=== PATIENT | male | born 1995 | race Caucasian/White ===

== ENCOUNTER 2019-05-08 16:55 | Emergency (ER) | payer OTHER ==
[2019-05-08 17:01] VITALS: BP 132/90; PULSE 86; TEMP 98; BMI 22.4
--- NOTE | 2019-05-08 18:26 | PDOC ---
History of Present Illness - General Chief Complaint: Substance Abuse Stated Complaint: WITHDRAWAL Time Seen by Provider: 05/08/19 17:41 History Source: Patient Exam Limitations: No Limitations - History of Present Illness Initial Comments: 05/08/19 18:18 Patient is a 23 year old male with h/o left elbow fx x 2, here with request for detox from Xanax. Patient states had been using 2mg Xanax per day x 2 months recreationly, buying from the street from a dealer. last used 2mg Xanax late last night. He is now feeling anxious and nauseous. was not able to sleep last night. (+) sweating intermittently, No seizure activity. Report a GARCIA frontal 12/17. PSOCHX: (+) MJ, (+) xananx, ALL: NKDA GENERAL/CONSTITUTIONAL: No fever or chills. No weakness. No weight change. HEAD, EYES, EARS, NOSE AND THROAT: No change in vision. No ear pain or discharge. No sore throat. CARDIOVASCULAR: No chest pain or shortness of breath. RESPIRATORY: No cough, wheezing, or hemoptysis. GASTROINTESTINAL: No nausea, vomiting, diarrhea or constipation. No rectal bleeding. GENITOURINARY: No dysuria, frequency, or change in urination. MUSCULOSKELETAL: No joint or muscle swelling or pain. No neck or back pain. SKIN AND BREASTS: No rash or easy bruising. NEUROLOGIC: (+) headache, vertigo, loss of consciousness, or loss of sensation. PSYCHIATRIC: No depression or anxiety. ENDOCRINE: No increased thirst. No abnormal weight change. HEMATOLOGIC/LYMPHATIC: No anemia, easy bleeding, or history of blood clots. ALLERGIC/IMMUNOLOGIC: No hives or skin allergy. No latex allergy. GENERAL: The patient is awake, alert, and fully oriented, in mild distress. HEAD: Normal with no signs of trauma. EYES: Pupils equal, round and reactive to light, extraocular movements intact, sclera anicteric, conjunctiva clear. ENT: Ears normal, nares patent, oropharynx clear without exudates. Moist mucous membranes. NECK: Normal range of motion, supple without lymphadenopathy, JVD, or masses. LUNGS: Breath sounds equal, clear to auscultation bilaterally. No wheezes, and no crackles. HEART: Regular rate and rhythm, normal S1 and S2 without murmur, rub. ABDOMEN: Soft, nontender, normoactive bowel sounds. No guarding, no rebound. No masses. EXTREMITIES: Normal range of motion, no edema. No clubbing or cyanosis. No cords, erythema, or tenderness. NEUROLOGICAL: Cranial nerves II through XII grossly intact. Normal speech, normal gait. PSYCH: Normal mood, normal affect. SKIN: Warm, Dry, normal turgor, no sweating noted, no rashes or lesions noted. Past History - Past Medical History Allergies/Adverse Reactions: Allergies Allergy/AdvReac Type Severity Reaction Status Date / Time No Known Allergies Allergy Verified 05/08/19 17:01 COPD: No - Psycho Social/Smoking Cessation Hx Smoking History: Never smoked *Physical Exam - Vital Signs Last Vital Signs Temp Pulse Resp BP Pulse Ox 98 F 86 18 132/90 99 05/08/19 16:58 05/08/19 16:58 05/08/19 16:58 05/08/19 16:58 05/08/19 16:58 Medical Decision Making - Medical Decision Making 05/08/19 18:18 Patient is a 23 year old male with h/o left elbow fx x 2, here with request for detox from Xanax. Patient states had been using 2mg Xanax per day x 2 months recreationaly, buying from the street from a dealer. last used 2mg Xanax late last night. He is now feeling anxious and nauseous. was not able to sleep last night. (+) sweating intermittently, No seizure activity. Report a GARCIA frontal 5/10. Patient with mild withdrawal symptoms. case d/w [facility] Dr. Galvan, who states patient could come for evaluation. patient sent with security. Since is medically cleared for detox. Discharge - Discharge Information Problems reviewed: Yes Clinical Impression/Diagnosis: Desire for detoxification Condition: Fair Disposition: HOME - Follow up/Referral - Patient Discharge Instructions Additional Instructions: Your Discharge Instructions: You must call primary care physician within 24 hours to arrange follow-up. Return to the Emergency Department with any new, persistent or worsening symptoms, for fever, chills, SOB, dizziness or any other concerning changes that may occur. - Post Discharge Activity
== END 2019-05-08 18:43 | disposition home or self-care (01) ==
LOC: JER 16:55
DX: F13.230 Sedative, hypnotic or anxiolytic dependence with withdrawal, uncomplicated (principal); F12.10 Cannabis abuse, uncomplicated
CPT/HCPCS: 99282-25

== ENCOUNTER 2019-05-08 18:54 | Inpatient (IN) | payer OTHER ==
[2019-05-08 19:48] VITALS: BMI 22.5
--- NOTE | 2019-05-08 20:40 | HP ---
CIWA Score Nausea/Vomitin Muscle Tremors: 3 Anxiety: 4-Mod. Anxious/Guarded Agitation: 3 Paroxysmal Sweats: 3 Orientation: 0-Oriented Tacttile Disturbances: 0-None Auditory Disturbances: 0-None Visual Disturbances: 0-None Headache: 2-Mild CIWA-Ar Total Score: 17 - Admission Criteria OASAS Guidelines: Admission for Medically Managed Detox: Requires at least one of the followin. CIWA greater than 12 2. Seizures within the past 24 hours 3. Delirium tremens within the past 24 hours 4. Hallucinations within the past 24 hours 5. Acute intervention needed for co occurring medical disorder 6. Acute intervention needed for co occurring psychiatric disorder 7. Severe withdrawal that cannot be handled at a lower level of care (continued vomiting, continued diarrhea, abnormal vital signs) requiring intravenous medication and/or fluids 8. Admission [facility] Chief Complaint: Benzodiazepine withdrawal symptoms Allergies/Adverse Reactions: Allergies Allergy/AdvReac Type Severity Reaction Status Date / Time No Known Allergies Allergy Verified 05/08/19 17:01 History of Present Illness: 23 years old male is seeking admission to detox from Xanax. Patient reports that first used Xanax in the summer of 2013 and has used it intermittently during summer when his friend who provides the drug comes back on vacation. However, a friend linked him to a seller and he has constantly taken the drug for about 3 months now. This is his first admission to detox or a treatment facility and first admission to [facility]. He denies any medical history, suicide attempt and suicidal ideation at this time. - Ebola screening Have you traveled outside of the country in the last 21 days: No (N) Have you had contact with anyone from an Ebola affected area: No Do you have a fever: No - Review of Systems Constitutional: Loss of Appetite, Night Sweats, Changes in sleep EENT: reports: No Symptoms Reported Respiratory: reports: No Symptoms reported Cardiac: reports: No Symptoms Reported GI: reports: Nausea, Poor Appetite, Poor Fluid Intake : reports: No Symptoms Reported Musculoskeletal: reports: No Symptoms Reported Integumentary: reports: Dryness, Flushing Neuro: reports: Headache, Tremors Endocrine: reports: No Symptoms Reported Hematology: reports: No Symptoms Reported Psychiatric: reports: Judgement Intact, Mood/Affect Appropiate, Orientated x3 Other Systems: Reviewed and Negative Patient History - Patient Medical History Hx Anemia: No Hx Asthma: No Hx Chronic Obstructive Pulmonary Disease (COPD): No Hx Cancer: No Hx Cardiac Disorders: No Hx Congestive Heart Failure: No Hx Hypertension: No Hx Hypercholesterolemia: No Hx Pacemaker: No HX Cerebrovascular Accident: No Hx Seizures: No Hx Diabetes: No Hx Gastrointestinal Disorders: No Hx Liver Disease: No Hx Genitourinary Disorders: No Hx Sexually Transmitted Disorders: No Hx Renal Disease (ESRD): No Hx Thyroid Disease: No Hx Human Immunodeficiency Virus (HIV): No (Never tested) Hx Hepatitis C: No Hx Depression: No Hx Suicide Attempt: No Hx Bipolar Disorder: No Hx Schizophrenia: No - Patient Surgical History Past Surgical History: No - PPD History Previous Implant?: No (Patient does not remember if there was a previous implant ) Implanted On Prior R Admission?: No PPD to be Administered?: Yes - Reproductive History Patient is a Female of Child Bearing Age (11 -55 yrs old): No (male) - Smoking Cessation Smoking history: Never smoked Have you smoked in the past 12 months: No Hx Chewing Tobacco Use: No Initiated information on smoking cessation: No - Substance & Tx. History Hx Alcohol Use: No Hx Substance Use: Yes Substance Use Type: Tranquilizers Hx Substance Use Treatment: No - Substances abused Alprazolam (Xanax) Substance route: Oral Frequency: Daily Amount used: 2 MG Age of first use: 23 Date of last use: 05/08/19 Admission Physical Exam [facility] - Vital Signs Vital Signs: Vital Signs - 24 hr 05/08/19 19:43 Temperature 99.9 F H Pulse Rate 78 Respiratory 20 Rate Blood Pressure 147/91 - Physical General Appearance: Yes: Moderate Distress, Tremorous, Irritable, Sweating HEENTM: Yes: Within Normal Limits, Hearing grossly Normal Respiratory: Yes: Lungs Clear, Normal Breath Sounds, No Respiratory Distress Neck: Yes: Supple Breast: Yes: Breast Exam Deferred Cardiology: Yes: Tachycardia Abdominal: Yes: Normal Bowel Sounds, Soft Genitourinary: Yes: Within Normal Limits Back: Yes: Normal Inspection Musculoskeletal: Yes: Within Normal Limits Extremities: Yes: Tremors Neurological: Yes: Alert, Normal Mood/Affect Integumentary: Yes: Warm Lymphatic: Yes: Within Normal Limits - Diagnostic (1) Sedative, hypnotic or anxiolytic dependence with withdrawal, uncomplicated Current Visit: Yes Status: Acute Cleared for Admission [facility] - Detox or Rehab [facility] Level of Care: Medically Managed Detox Regimen/Protocol: Valium Breathalyzer - Breathalyzer Breathalyzer: 0 Urine Drug Screen - Test Device Lot number: [id number] Expiration date: 01/06/21 - Control Is test valid?: Yes - Results Drug screen NEGATIVE: No Urine drug screen results: THC-Marijuana, BZO-Benzodiazepines Inpatient Rehab Admission - Rehab Decision to Admit Inpatient rehab admission?: No
[2019-05-08] MEDS ORDERED: MAG HYDROX/AL HYDROX/SIMETH 30 ML UNIT-DOSE CUP PO PRN (20:58)
[2019-05-08] MEDS ORDERED: BISMUTH SUBSALICYLATE 524 MG/30 ML UD PO PRN (20:58)
[2019-05-08] MEDS ORDERED: MAGNESIUM CITRATE 300 ML BOTTLE PO PRN (20:58)
[2019-05-08] MEDS ORDERED: MAGNESIUM HYDROX 2400MG/30ML ORAL SUSPENSION 30 ML CUP PO PRN (20:58)
[2019-05-08] MEDS ORDERED: METHOCARBAMOL 500 MG TABLET PO PRN (20:58)
[2019-05-08] MEDS ORDERED: MENTHOL/PHENOL 1 EACH UD MM PRN (20:58)
[2019-05-08] MEDS ORDERED: ACETAMINOPHEN 325 MG TABLET (FP) PO PRN (20:58)
[2019-05-08] MEDS ORDERED: chlordiazePOXIDE HCL 10 MG CAPSULE PO PRN (20:58)
[2019-05-08] MEDS ORDERED: chlordiazePOXIDE HCL 25 MG CAPSULE PO SCH (21:00)
[2019-05-08] MEDS: THIAMINE HCL 100 MG TABLET (FP) PO SCH (22:24)
[2019-05-08] MEDS: diazePAM 5 MG TABLET PO SCH (22:24)
[2019-05-08] MEDS: MELATONIN 5 MG TABLETS PO PRN (22:25)
[2019-05-08] MEDS: ACETAMINOPHEN 325 MG TABLET (FP) PO PRN (22:28)
[2019-05-09] MEDS: diazePAM 5 MG TABLET PO SCH ×3 (05:30→22:53)
[2019-05-09] MEDS: ACETAMINOPHEN 325 MG TABLET (FP) PO PRN (07:30)
[2019-05-09] MEDS: diazePAM 5 MG TABLET PO PRN ×2 (09:47→18:02)
[2019-05-09] MEDS: PRENATAL VITAMINS W/ FOLIC ACID TABLET (FP) PO SCH (09:47)
[2019-05-09] MEDS: IBUPROFEN 400 MG TABLET (FP) PO PRN ×2 (09:47→18:03)
[2019-05-09 11:49] LABS: HEMATOCRIT 45.9 % (35.4-49); HEMOGLOBIN 15.3 GM/dL (11.7-16.9); MCH 29.5 pg (25.7-33.7); MCHC 33.3 g/dl (32.0-35.9); MEAN CELL VOLUME 88.7 fl (80-96); PLATELET COUNT 229 K/MM3 (134-434); RBC 5.17 M/mm3 (4.00-5.60); RDW 13.5 % (11.9-15.9); WHITE BLOOD COUNT 9.3 K/mm3 (4.0-10.0)
[2019-05-09 12:20] LABS: ALBUMIN 4.9 g/dl (3.4-5.0); BILIRUBIN,TOTAL 0.9 mg/dL (0.2-1); BLOOD UREA NITROGEN 9.2 mg/dL (7-18); TOT PROT 8.2 g/dl (6.4-8.2)
--- NOTE | 2019-05-09 12:56 | PN ---
S CIWA - CIWA Score Nausea/Vomitin-Mild Nausea/No Vomiting Muscle Tremors: 3 Anxiety: 3 Agitation: 2 Paroxysmal Sweats: 1-Minimal Palms Moist Orientation: 0-Oriented Tacttile Disturbances: 1-Very Mild Itch/Numbness Auditory Disturbances: 1-Very Mild Visual Disturbances: 0-None Headache: 2-Mild CIWA-Ar Total Score: 14 S Progress Note (SOAP) Subjective: doing well with valium detox regimen resting on bed comfortably feeling tired prefers to sleep today Objective: 05/09/19 12:57 Vital Signs Temperature 97.9 F 05/09/19 09:10 Pulse Rate 79 05/09/19 09:10 Respiratory Rate 18 05/09/19 09:10 Blood Pressure 122/74 05/09/19 09:10 O2 Sat by Pulse Oximetry (%) Laboratory Last Values WBC 9.3 K/mm3 (4.0-10.0) 05/09/19 08:50 RBC 5.17 M/mm3 (4.00-5.60) 05/09/19 08:50 Hgb 15.3 GM/dL (11.7-16.9) 05/09/19 08:50 Hct 45.9 % (35.4-49) 05/09/19 08:50 MCV 88.7 fl (80-96) 05/09/19 08:50 MCH 29.5 pg (25.7-33.7) 05/09/19 08:50 MCHC 33.3 g/dl (32.0-35.9) 05/09/19 08:50 RDW 13.5 % (11.9-15.9) 05/09/19 08:50 Plt Count 229 K/MM3 (134-434) 05/09/19 08:50 MPV 11.0 fl (7.5-11.1) 05/09/19 08:50 Sodium 139 mmol/L (136-145) 05/09/19 08:50 Potassium 4.0 mmol/L (3.5-5.1) 05/09/19 08:50 Chloride 100 mmol/L (98-107) 05/09/19 08:50 Carbon Dioxide 30 mmol/L (21-32) 05/09/19 08:50 Anion Gap 9 MMOL/L (8-16) 05/09/19 08:50 BUN 9.2 mg/dL (7-18) 05/09/19 08:50 Creatinine 1.0 mg/dL (0.55-1.3) 05/09/19 08:50 Est GFR (CKD-EPI)AfAm 122.41 05/09/19 08:50 Est GFR (CKD-EPI)NonAf 105.62 05/09/19 08:50 Random Glucose 92 mg/dL (74-106) 05/09/19 08:50 Calcium 10.0 mg/dL (8.5-10.1) 05/09/19 08:50 Total Bilirubin 0.9 mg/dL (0.2-1) 05/09/19 08:50 AST 24 U/L (15-37) 05/09/19 08:50 ALT 122 U/L (13-61) H 05/09/19 08:50 Alkaline Phosphatase 72 U/L (45-117) 05/09/19 08:50 Total Protein 8.2 g/dl (6.4-8.2) 05/09/19 08:50 Albumin 4.9 g/dl (3.4-5.0) 05/09/19 08:50 RPR Titer Nonreactive (NONREACTIVE) 05/09/19 08:50 lab noted Assessment: 05/09/19 12:58 benzo withdrawal sx Plan: continue valium detox regimen
--- NOTE | 2019-05-09 13:25 | EKG ---
Test Reason : Blood Pressure : / mmHG Vent. Rate : 071 BPM Atrial Rate : 071 BPM P-R Int : 140 ms QRS Dur : 084 ms QT Int : 388 ms P-R-T Axes : 036 081 047 degrees QTc Int : 421 ms NORMAL SINUS RHYTHM WITH SINUS ARRHYTHMIA NORMAL ECG NO PREVIOUS ECGS AVAILABLE Confirmed by YAHAIRA ALFREDO MD ([id number]) on 05/09/2019 1:25:01 PM Referred By: Confirmed By:YAHAIRA ALFREDO MD
[2019-05-09] MEDS: THIAMINE HCL 100 MG TABLET (FP) PO SCH (22:53)
[2019-05-10] MEDS ORDERED: chlordiazePOXIDE 5 MG CAPSULE PO SCH (05:00)
[2019-05-10] MEDS: diazePAM 5 MG TABLET PO SCH ×2 (05:56→18:08)
[2019-05-10] MEDS: ACETAMINOPHEN 325 MG TABLET (FP) PO PRN (10:35)
[2019-05-10] MEDS: PRENATAL VITAMINS W/ FOLIC ACID TABLET (FP) PO SCH (10:35)
--- NOTE | 2019-05-10 16:56 | PN ---
S CIWA - CIWA Score Nausea/Vomitin (Poor Appetite.) Muscle Tremors: None Anxiety: 4-Mod. Anxious/Guarded Agitation: 3 Paroxysmal Sweats: No Perspiration Orientation: 0-Oriented Tacttile Disturbances: 0-None Auditory Disturbances: 0-None Visual Disturbances: 0-None Headache: 0-None Present CIWA-Ar Total Score: 9 BHS Progress Note (SOAP) Subjective: Interrupted Sleep, Poor Appetite, Anxious. Objective: PATIENT A & O X 3, OBSERVED AMBULATING ON DETOX UNIT UNASSISTED. IN NO ACUTE DISTRESS. 05/10/19 16:54 Vital Signs Temperature 98.1 F 05/10/19 13:32 Pulse Rate 74 05/10/19 13:32 Respiratory Rate 18 05/10/19 13:32 Blood Pressure 141/93 05/10/19 13:32 O2 Sat by Pulse Oximetry (%) Laboratory Tests 05/09/19 05/09/19 05/09/19 08:50 08:50 08:50 WBC 9.3 RBC 5.17 Hgb 15.3 Hct 45.9 MCV 88.7 MCH 29.5 MCHC 33.3 RDW 13.5 Plt Count 229 MPV 11.0 Sodium 139 Potassium 4.0 Chloride 100 Carbon Dioxide 30 Anion Gap 9 BUN 9.2 Creatinine 1.0 Est GFR (CKD-EPI)AfAm 122.41 Est GFR (CKD-EPI)NonAf 105.62 Random Glucose 92 Calcium 10.0 Total Bilirubin 0.9 AST 24 ALT 122 H Alkaline Phosphatase 72 Total Protein 8.2 Albumin 4.9 RPR Titer Nonreactive LABS NOTED. Assessment: 05/10/19 16:55 WITHDRAWAL SYMPTOMS. ELEVATED ALT LEVEL. Plan: CONTINUE DETOX. PRN MELATONIN PO FOR INSOMNIA. ENSURE PO FOR CALORIC SUPPLEMENTATION. PATIENT SCHEDULED FOR D/C FROM DETOX UNIT TOMORROW.
[2019-05-10] MEDS: THIAMINE HCL 100 MG TABLET (FP) PO SCH (22:07)
[2019-05-10] MEDS: MELATONIN 5 MG TABLETS PO PRN (22:07)
[2019-05-11] MEDS ORDERED: chlordiazePOXIDE HCL 10 MG CAPSULE PO PRN
[2019-05-11] MEDS ORDERED: chlordiazePOXIDE HCL 10 MG CAPSULE PO SCH (05:00)
[2019-05-11] MEDS ORDERED: diazePAM 5 MG TABLET PO ONE (06:00)
[2019-05-11] MEDS: ACETAMINOPHEN 325 MG TABLET (FP) PO PRN (08:20)
[2019-05-11] MEDS: PRENATAL VITAMINS W/ FOLIC ACID TABLET (FP) PO SCH (10:24)
[2019-05-11] MEDS: hydrOXYzine PAMOATE 25 MG CAPSULE (FP) PO PRN ×2 (14:04→22:11)
--- NOTE | 2019-05-11 15:45 | PN ---
S CIWA - CIWA Score Nausea/Vomitin-No Nausea/No Vomiting Muscle Tremors: None Anxiety: 3 Agitation: 3 Paroxysmal Sweats: 3 Orientation: 0-Oriented Tacttile Disturbances: 0-None Auditory Disturbances: 0-None Visual Disturbances: 0-None Headache: 0-None Present CIWA-Ar Total Score: 9 BHS Progress Note (SOAP) Subjective: Sweating, Anxious. Objective: PATIENT A & O X 3, OBSERVED AMBULATING ON DETOX UNIT UNASSISTED. IN NO ACUTE DISTRESS. 05/11/19 15:42 Vital Signs Temperature 97.9 F 05/11/19 13:04 Pulse Rate 101 H 05/11/19 13:04 Respiratory Rate 18 05/11/19 13:04 Blood Pressure 144/91 05/11/19 13:04 O2 Sat by Pulse Oximetry (%) Laboratory Tests 05/09/19 05/09/19 05/09/19 08:50 08:50 08:50 WBC 9.3 RBC 5.17 Hgb 15.3 Hct 45.9 MCV 88.7 MCH 29.5 MCHC 33.3 RDW 13.5 Plt Count 229 MPV 11.0 Sodium 139 Potassium 4.0 Chloride 100 Carbon Dioxide 30 Anion Gap 9 BUN 9.2 Creatinine 1.0 Est GFR (CKD-EPI)AfAm 122.41 Est GFR (CKD-EPI)NonAf 105.62 Random Glucose 92 Calcium 10.0 Total Bilirubin 0.9 AST 24 ALT 122 H Alkaline Phosphatase 72 Total Protein 8.2 Albumin 4.9 RPR Titer Nonreactive LABS NOTED. Assessment: 05/11/19 15:42 WITHDRAWAL SYMPTOMS. ELEVATED BLOOD PRESSURE READING IN OFFICE WITHOUT DIAGNOSIS OF HYPERTENSION. Plan: CONTINUE DETOX. PATIENT'S BP TODAY NOTED TO BE INTERMITTENTLY ELEVATED. PATIENT DENIES KNOWN HISTORY OF HTN. PATIENT DENIES CHEST PAIN. PATIENT PERMITTED TO REMAIN ON DETOX UNIT UNTIL TOMORROW MA TO CONTINUE TO MONITOR BP TO ENSURE THAT IT STABILIZES PRIOR TO D/C.
[2019-05-11 21:49] VITALS: PULSE 81
[2019-05-11] MEDS: THIAMINE HCL 100 MG TABLET (FP) PO SCH (22:11)
[2019-05-11] MEDS: MELATONIN 5 MG TABLETS PO PRN (22:12)
[2019-05-12] MEDS ORDERED: chlordiazePOXIDE HCL 10 MG CAPSULE PO ONE (05:00)
[2019-05-12 06:40] VITALS: BP 127/78; TEMP 97
--- NOTE | 2019-05-12 09:39 | DS ---
[facility] Detox Discharge Summary Admission Date: 05/08/19 Discharge Date: 05/12/19 - History Present History: Sedative Dependence Additional Comments: Patient medically stable, no SI/HI, successfully completed benzo detox. Patient to follow up with attached referrals to outpatient programs. Follow up with PCP at [facility] within a week. If worsening symptoms are present seek medical attention. Pertinent Past History: Vital Signs Temperature 97.0 F L 05/12/19 06:39 Pulse Rate 81 05/12/19 06:39 Respiratory Rate 18 05/12/19 06:39 Blood Pressure 127/78 05/12/19 06:39 O2 Sat by Pulse Oximetry (%) Laboratory Last Values WBC 9.3 K/mm3 (4.0-10.0) 05/09/19 08:50 RBC 5.17 M/mm3 (4.00-5.60) 05/09/19 08:50 Hgb 15.3 GM/dL (11.7-16.9) 05/09/19 08:50 Hct 45.9 % (35.4-49) 05/09/19 08:50 MCV 88.7 fl (80-96) 05/09/19 08:50 MCH 29.5 pg (25.7-33.7) 05/09/19 08:50 MCHC 33.3 g/dl (32.0-35.9) 05/09/19 08:50 RDW 13.5 % (11.9-15.9) 05/09/19 08:50 Plt Count 229 K/MM3 (134-434) 05/09/19 08:50 MPV 11.0 fl (7.5-11.1) 05/09/19 08:50 Sodium 139 mmol/L (136-145) 05/09/19 08:50 Potassium 4.0 mmol/L (3.5-5.1) 05/09/19 08:50 Chloride 100 mmol/L (98-107) 05/09/19 08:50 Carbon Dioxide 30 mmol/L (21-32) 05/09/19 08:50 Anion Gap 9 MMOL/L (8-16) 05/09/19 08:50 BUN 9.2 mg/dL (7-18) 05/09/19 08:50 Creatinine 1.0 mg/dL (0.55-1.3) 05/09/19 08:50 Est GFR (CKD-EPI)AfAm 122.41 05/09/19 08:50 Est GFR (CKD-EPI)NonAf 105.62 05/09/19 08:50 Random Glucose 92 mg/dL (74-106) 05/09/19 08:50 Calcium 10.0 mg/dL (8.5-10.1) 05/09/19 08:50 Total Bilirubin 0.9 mg/dL (0.2-1) 05/09/19 08:50 AST 24 U/L (15-37) 05/09/19 08:50 ALT 122 U/L (13-61) H 05/09/19 08:50 Alkaline Phosphatase 72 U/L (45-117) 05/09/19 08:50 Total Protein 8.2 g/dl (6.4-8.2) 05/09/19 08:50 Albumin 4.9 g/dl (3.4-5.0) 05/09/19 08:50 RPR Titer Nonreactive (NONREACTIVE) 05/09/19 08:50 - Physical Exam Results Vital Signs: Vital Signs Temperature 97.0 F L 05/12/19 06:39 Pulse Rate 81 05/12/19 06:39 Respiratory Rate 18 05/12/19 06:39 Blood Pressure 127/78 05/12/19 06:39 O2 Sat by Pulse Oximetry (%) Pertinent Admission Physical Exam Findings: Medically stable Aox3 no acute distress EENT WNL no adventitious breath sounds No JVD Full ROM no gait abnormality no edema or erythema - Treatment Hospital Course: Detox Protocol Followed, Detoxed Safely, Responded well, Discharged Condition Good Patient has Accepted a Rehab Referral to: out patient program - Medication Discharge Medications: Ambulatory Orders NK [No Known Home Medication] 05/08/19 - Diagnosis (1) Elevated alanine aminotransferase (ALT) level Current Visit: Yes Status: Acute (2) Sedative, hypnotic or anxiolytic dependence with withdrawal, uncomplicated Current Visit: Yes Status: Acute - AMA Did Patient Leave Against Medical Advice: No
== END 2019-05-12 09:43 | disposition home or self-care (01) | DRG 897 ==
LOC: YASAS 18:54 → Y6N 21:25 → Y3N 21:37
PROVIDERS: ADMIT Surgery; ATTEND Surgery
PROC: HZ2ZZZZ Detoxification Services for Substance Abuse Treatment (ICD-10-PCS; principal; 2019-05-08)
DX: F13.230 Sedative, hypnotic or anxiolytic dependence with withdrawal, uncomplicated (principal); R74.0 Nonspecific elevation of levels of transaminase and lactic acid dehydrogenase [LDH]; R03.0 Elevated blood-pressure reading, without diagnosis of hypertension; R00.0 Tachycardia, unspecified
CPT/HCPCS: 36415; 80053; 85027; 86593; 93005; 93010